=== PATIENT | male | born 1960 | race Caucasian/White ===

== ENCOUNTER 2016-12-15 13:56 | Emergency (ER) | payer OTHER, BC ==
[~2016-12-15] VITALS: Ht 170.2 cm; Wt 92.4 kg
[~2016-12-15 13:56] MED LIST: ANTIHISTAMINE PO; HYDROCODON-ACETAMINOPHEN PO; LANS30CA12 PO; NAPR-1169 PO; OMEG1CAP81 PO; SIMV20TA5 PO
[2016-12-15 14:16] VITALS: TEMP 36.9; Ht 170.2 cm; Wt 92.4 kg
[2016-12-15 14:22] VITALS: O2SAT 94
--- NOTE | 2016-12-15 14:25 | EMERGENCY ROOM VISIT NOTE ---
History Report prepared by Vicenteibrachel: Saima Haider Under the Supervision of: Dr. Uvaldo Abdalla M.D. First contact with patient: 14:03 Chief Complaint: FALL Stated Complaint: SYNCOPE/ POSSIBLY HIT HEAD/ HAND NUMBNESS History of Present Illness The patient is a 56 year old male who presents to the Emergency Room via EMS to be evaluated for a possible syncopal event that occurred this afternoon. 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 The patient admits that he hit the top of his head on the bleachers and bit his lip when he stood up. They yelled to see if he was alright, and he replied that he was fine. About 25 minutes later, the patient was found under the bleachers unconscious with drool on the ground next to his face. He was able to wake up easily with stimulation and was alert and oriented afterwards. Upon EMS arrival , the patient initially refused to come to the emergency room, but an ED physician taking medical command talked him into coming. EMS notes that while he was on the phone with the physician, he was slightly off balance. He was hypertensive around 170s/110s en route. Currently, he has a slight headache towards the back of his head. He has no other complaints. The patient is not a heavy drinker but admits to having some cocktails last night and a beer today at lunch. He has a history of complex migraines. He does not have any history of seizures. Denies abdominal pain or other complaints. Source of History: patient, EMS Onset: this afternoon Position: other (global) Quality: other (possible syncopal event) Timing: resolved Associated Symptoms: + headache, No abdominal pain Review of Systems See HPI for pertinent positives & negatives. A total of 10 systems reviewed and were otherwise negative. Past Medical & Surgical Medical Problems: (1) Acid reflux (2) High cholesterol (3) Migraine Surgical Problems: (1) H/O inguinal hernia repair Family History Patient reports no known family medical history. Social History Smoking Status: Never Smoker Alcohol Use: occasionally Marital Status: Housing Status: lives with family Occupation Status: employed Current/Historical Medications Scheduled Albuterol Hfa (Ventolin Hfa), 2-4 PUFFS INH Q6H Ascorbic Acid (Ascorbic Acid), 1,000 MG PO DAILY Ibuprofen (Motrin), 400-600 MG PO Q6HR PRN Lansoprazole (Prevacid), 60 PO HS Omeprazole (Prilosec), 20 MG PO BID Simvastatin (Zocor), 20 MG PO QPM Miscellaneous Medications Plcqsjcfcm-Bnfarmlkefmoo-Vgxra (Butalbital/APAP/Caffeine 50-300-40 mg) Zinc W/ Vitamin C & B6 (Zinc) Allergies Coded Allergies: Egg (Verified Allergy, Unknown, 12/15/16) Clavulanic Acid (Verified Adverse Reaction, Unknown, GI UPSET, 12/15/16) Physical Exam Vital Signs Date Time Temp Pulse Resp B/P Pulse Ox O2 Delivery O2 Flow Rate FiO2 12/15/16 15:25 84 17 140/92 93 Room Air 12/15/16 15:02 84 16 132/99 95 Room Air 12/15/16 14:22 94 Room Air 12/15/16 14:16 36.9 86 18 157/96 94 Room Air Physical Exam GENERAL: Patient is a healthy-appearing well-nourished 56 year old male HEAD: Normocephalic, 2 inch contusion to the left forehead. EYES: He cannot completely lateralize the left eye, pupils equal and react to light OROPHARYNX mucous membranes are moist no exudates present no erythema or edema present NECK: Supple no nuchal rigidity CHEST: Good equal expansion LUNGS: Clear and equal to auscultation CARDIAC: Normal S1 and S2 ABDOMEN: Soft nontender no guarding BACK: No CVA tenderness EXTREMITIES: No pain upon palpation normal muscle strength in all groups no clubbing cyanosis or edema NEURO: Patient is following commands is answering questions appropriately. Alert and oriented x3 Cranial Nerves 2-12 grossly intact Medical Decision & Procedures ER Provider Diagnostic Interpretation: Radiology results as stated below per my review and radiologist interpretation: CT OF THE HEAD WITHOUT CONTRAST CLINICAL HISTORY: Fall. Syncope. COMPARISON STUDY: Head CT August 12, 2008 and MRI of the brain August 13, 2008. CT DOSE: 823.94 mGycm TECHNIQUE: Helical axial images of the head were obtained without IV contrast. Automated exposure control was utilized for the study. FINDINGS: No acute intracranial hemorrhage, midline shift or mass effect is present. Ventricular system is normal. The basilar cisterns are patent. There are no extra-axial collections. Burgess-white differentiation is maintained. There are no findings to suggest acute dural sinus thrombosis or acute territorial infarct. There is no calvarial fracture. IMPRESSION: 1. No acute intracranial findings. 2. No calvarial fracture. Electronically signed by: William Palacios M.D. 12/15/2016 2:58 PM Dictated Date/Time: 12/15/2016 2:56 PM ECG Indication: syncope Rate (beats per minute): 77 Rhythm: normal sinus Findings: no acute ischemic change, no ectopy ED Course 1405: The patient was evaluated in room B4. A complete history and physical examination was performed. He refused any labs. 1526: Upon reexamination the patient is resting comfortably. I discussed results and treatment plan with the patient. He verbalizes agreement and understanding. The patient is ready for discharge. Medical Decision Differential diagnosis: Etiologies such as infection, hypoglycemia, electrolyte abnormalities, cardiac sources, intracerebral event, trauma, toxicologic, neurologic, as well as others were entertained. This is a 56-year-old male who presents emergency department complaining of syncopal episode. The patient hit his head and it was found to be laying on the floor approximate 20 minutes later. Upon arrival to the emergency department the patient is refusing all laboratory work. The patient also initially refused EMS however was talked into coming by the physician. Upon arrival the patient is refusing all interventions. He did agree to have a CAT scan of the head as well as an EKG performed. These were both read as normal. I strongly encouraged the patient follow-up with neurology. Patient was in agreement with the treatment plan. The patient has demonstrated no significant defect in the decision-making capacity to make choices. The encounter had a good level of communication with language the patient can easily understand. I feel trust was present and conveyed that our action/intentions were the best interest of the patient. The patient was given all relevant information and reiterated the explained risks and benefits. The patient explained the reasoning for refusing treatment clearly. The patient possesses and expresses a set of values and goals, the ability to communicate and understand, and an ability to reason and deliberate. Despite acting emphatically, attentively and with the utmost patient's the patient declined further treatment. I offered options, negotiated, and explored every reasonable choice. I must respect the patient's autonomy and that they feel that their choices are best for them despite the associated risks of leaving without completing the evaluation. The patient was informed about the findings as listed above. All questions were answered and he was pleased with the treatment. Return instructions were outlined and the patient was discharged in stable condition. Impression Primary Impression: Syncope Scribe Attestation The scribe's documentation has been prepared under my direction and personally reviewed by me in its entirety. I confirm that the note above accurately reflects all work, treatment, procedures, and medical decision making performed by me. Departure Information Dispostion Home / Self-Care Referrals Pavan Waters Jr,D.O. (PCP) Patient Instructions ED Fainting Unkn Cause, My [facility], Syncope Causes, Syncope Dx, Syncope Tx Prevent Additional Instructions Follow up with DR Mendoza's office You have been examined and treated today on an emergency basis only. This is not a substitute for, or an effort to provide, complete comprehensive medical care. It is impossible to recognize and treat all injuries or illnesses in a single emergency department visit. It is therefore important that you follow up closely with Dr Waters. Call as soon as possible for an appointment. Thank you for your time and consideration. I look forward to speaking with you again soon. Please don't hesitate to call us if you have any questions. Problem Qualifiers Primary Impression: Syncope Syncope type: unspecified Qualified Codes: R55 - Syncope and collapse
[2016-12-15] MEDS ORDERED: [UNRECOGNIZED DRUG - CODE] (14:41)
[2016-12-15] MEDS ORDERED: BUTA1CAP20 (14:41)
--- NOTE | 2016-12-15 14:59 | DIAGNOSTIC IMAGING REPORT ---
CT OF THE HEAD WITHOUT CONTRAST CLINICAL HISTORY: Fall. Syncope. COMPARISON STUDY: Head CT August 12, 2008 and MRI of the brain August 13, 2008. CT DOSE: 823.94 mGycm TECHNIQUE: Helical axial images of the head were obtained without IV contrast. Automated exposure control was utilized for the study. FINDINGS: No acute intracranial hemorrhage, midline shift or mass effect is present. Ventricular system is normal. The basilar cisterns are patent. There are no extra-axial collections. Burgess-white differentiation is maintained. There are no findings to suggest acute dural sinus thrombosis or acute territorial infarct. There is no calvarial fracture. IMPRESSION: 1. No acute intracranial findings. 2. No calvarial fracture. Electronically signed by: William Palacios M.D. 12/15/2016 2:58 PM Dictated Date/Time: 12/15/2016 2:56 PM
[2016-12-15 15:25] VITALS: BP 140/92; PULSE 84; O2SAT 93
[2016-12-19] MEDS ORDERED: ASCO500T16 PO (14:03)
[2016-12-19] MEDS ORDERED: VNTHFA/IN INH (14:41)
[2016-12-19] MEDS ORDERED: IBUP-1459 PO (16:11)
[2016-12-19] MEDS ORDERED: PRLSR20 PO (16:11)
== END 2016-12-15 15:46 | disposition home or self-care (01) ==
LOC: EDBD 13:56 → C.EDB 13:56
DX: R55 Syncope and collapse (principal); S00.83XA Contusion of other part of head, initial encounter; K21.9 Gastro-esophageal reflux disease without esophagitis; E78.00 Pure hypercholesterolemia, unspecified; W22.8XXA Striking against or struck by other objects, initial encounter; Y92.29 Other specified public building as the place of occurrence of the external cause; Y99.0 Civilian activity done for income or pay

== ENCOUNTER 2016-12-19 19:56 | Emergency (ER) | payer OTHER, BC ==
[~2016-12-19] VITALS: Ht 170.2 cm; Wt 92.0 kg
[~2016-12-19 19:56] MED LIST changes: -ANTIHISTAMINE PO; +ASCO500T16 PO; +BUTA1CAP20; -HYDROCODON-ACETAMINOPHEN PO; +IBUP-1459 PO; -NAPR-1169 PO; -OMEG1CAP81 PO; +PRLSR20 PO; +VNTHFA/IN INH; +[UNRECOGNIZED DRUG - CODE]
[2016-12-19 20:02] VITALS: TEMP 36.9; Ht 170.2 cm; Wt 92.0 kg
[2016-12-19] MEDS ORDERED: BUTA1CAP PO (20:39)
[2016-12-19] MEDS ORDERED: CYCL0.052 OPB (20:39)
[2016-12-19] MEDS ORDERED: ZINC1TAB PO (20:39)
[2016-12-19] MEDS ORDERED: FEXO1TAB49 PO (20:43)
--- NOTE | 2016-12-19 21:05 | DIAGNOSTIC IMAGING REPORT ---
CT SCAN OF THE BRAIN WITHOUT IV CONTRAST CLINICAL HISTORY: Head injury several days ago. Headache. COMPARISON STUDY: CT of the brain dated 12/15/16. TECHNIQUE: Unenhanced axial CT scan of the brain is performed from the vertex to the skull base. Automated dose control exposure was utilized. CT DOSE: 537.48 mGy.cm FINDINGS: Brain parenchyma: The brain parenchyma is normal in appearance. There is no hemorrhage, mass effect, or evidence of acute territorial ischemia by CT criteria. Burgess-white matter is preserved. No extra-axial fluid collection is seen. Ventricles, sulci, cisterns: Normal in configuration. Intracranial vasculature: There is minimal atherosclerotic calcification of the cavernous carotid and vertebral arteries. Calvarium: Unremarkable. Sinuses and mastoids: The visualized paranasal sinuses are clear. The mastoid air cells are well pneumatized. Orbits: The bony orbits are grossly intact. IMPRESSION: No acute intracranial abnormality. Electronically signed by: Sarath Guzman M.D. 12/19/2016 9:03 PM Dictated Date/Time: 12/19/2016 9:01 PM
[2016-12-19 21:42] VITALS: BP 143/100; PULSE 73; O2SAT 94
--- NOTE | 2016-12-20 01:02 | EMERGENCY ROOM VISIT NOTE ---
ED Visit Note First contact with patient: 20:07 Chief Complaint: Possible head injury. History of Present Illness: Mr. Resendiz is a 56-year-old white male who ambulates into the ED accompanied by his complaining of a possible head injury. Historically patient was seen in this ED on December 15 after what appeared to be a syncopal episode. 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 During that visit a CT was performed and no intracranial abnormalities or skull fractures were noted. Patient did report he returned to work today after this evaluation. Patient was seen earlier today at a local urgent care center and was referred to the ED for evaluation of head injury. Patient and reports patient has been having increasing irritability, excessive sleeping, difficulty remembering normal objects he uses at work, repeating himself or asking the same questions multiple times and has been feeling confused. All of this is associated with a headache. He places his discomfort over the left parietal area. He describes this as an achy sensation. He rates his discomfort 3/10. The pain is nonradiating. He has not identified any aggravating or alleviating factors related to the pain. He has using his prescribed Esgic without relief of his discomfort. Associated with his pain he also has lightheadedness and light sensitivity. He denies dizziness, visual changes, hearing changes, difficulty swallowing, difficulty ambulating/coordinating body movements, neck pain, back pain, chest pain, shortness of breath, abdominal pain, extremity weakness/numbness/tingling. Review of Systems: As noted above in history of present illness. All body systems were reviewed and found to be negative as noted above. Past Medical History: Migraine headaches, dyslipidemia, acid reflux, status post inguinal hernia repair. Current Medications: Prilosec, ibuprofen, vitamin C, albuterol, zinc, Esgic, Restasis and Julia. Allergies to Medications: Clavulanic acid. Social History: Patient is currently employed; he feels safe in his home environment; he denies tobacco use and admits to alcohol use. Physical Examination: Vital Signs: Date Time Temp Pulse Resp B/P Pulse Ox O2 Delivery O2 Flow Rate FiO2 12/19/16 21:42 73 18 143/100 94 12/19/16 20:02 36.9 76 18 142/96 96 Room Air GENERAL: 56-year-old male in mild distress due to symptoms, nontoxic-appearing, afebrile and hemodynamically stable. NEUROLOGICAL: Awake, alert and oriented to person, place and time. Answering questions appropriately and following commands. Normal gait. Good hand eye coordination. No focal motor or sensory deficits. Romberg test was unstable but negative. Pronator drift test negative. Cranial nerves II through XII grossly intact. Normal rapid all movements of the hands and fingers. Was able to spell backwards but not count backwards. Difficulty drawing the face of a clock. Normal heel maki test. Intermittently patient stares down towards his lap and is not immediately responsive to my questions for approximately 2-3 seconds. SKIN: Warm, dry and pink. No soft tissue eruptions or trauma noted. HEENT: Atraumatic and normocephalic. Skull: No bony deformities, depressions, swelling or ecchymosis. No raccoon's eyes or ovalle signs. No drainage in the ears or the nostril; no hemotympanum. Face: No bony tenderness, swelling or ecchymosis. PERRLA. EOMI without nystagmus. Funduscopic examination is unremarkable with no signs of increased intracranial pressure. Sclera white and conjunctiva pink. No malocclusion. No intraoral trauma. Airway patent. Speech is normal and clear. Trachea midline. No jugular venous distention. BACK: No tenderness over the bony spine. Full range of motion of the cervical spine. THORAX: Lungs sounds are clear to auscultation and equal bilaterally with symmetrical chest wall. ABDOMEN: Flat, soft and nontender. Positive bowel sounds in all quadrants. No guarding, rigidity or organomegaly. EXTREMITIES: Moves all extremities well on command and with purpose. All distal neurovascular statuses are intact and equal bilaterally. 4/5 muscle strength in flexion, extension, abduction and abduction of the shoulders and hips, flexion and extension of the elbows and knees, pronation and supination of the forearm, flexion, extension, radial and ulnar deviation of the wrist, plantar flexion and dorsiflexion of the ankles and flexion and extension of the great toes. ED Course: Patient is assessed as noted above. Head CT: Was reviewed by myself and read by the radiologist showing no acute intracranial abnormalities or skull fractures. Patient was offered pain medications and refused. Patient and were educated about tonight's findings and instructed on his treatment plan; he verbalizes understanding and agreement with this plan. Clinical Impression: Concussion. Decision-Making: Initially my differential diagnosis I considered concussion, intercranial bleed, skull fracture and other causes. Disposition: Patient discharged home in stable condition accompanied by his ; prior to departure he was reassessed and subjectively reported he was pain- free. Plan: Patient was encouraged to use ibuprofen or acetaminophen as needed for pain. Patient was encouraged to rest and no significant strenuous activities until followed up with concussion clinic including work. Patient was encouraged to avoid alcohol use until followed up with concussion clinic. Patient was encouraged to follow-up with the [facility]. Patient and are educated about signs of worsening head injury and wake-up precautions. Patient are educated return to the ED for any signs of worsening head injury or any new/concerning symptoms.
== END 2016-12-19 21:43 | disposition home or self-care (01) ==
LOC: C.EDB 19:58
DX: S06.0X0A Concussion without loss of consciousness, initial encounter (principal); W19.XXXA Unspecified fall, initial encounter; Y92.89 Other specified places as the place of occurrence of the external cause; Y99.0 Civilian activity done for income or pay; E78.5 Hyperlipidemia, unspecified; K21.9 Gastro-esophageal reflux disease without esophagitis; Z79.899 Other long term (current) drug therapy

== ENCOUNTER → 2017-03-25 | Outpatient (CLI) | payer OTHER, BC ==
[~2017-03-25] MED LIST changes: +BUTA1CAP PO; -BUTA1CAP20; +CYCL0.052 OPB; +FEXO1TAB49 PO; +GADAVIST IV PRN; -LANS30CA12 PO; -SIMV20TA5 PO; +ZINC1TAB PO; -[UNRECOGNIZED DRUG - CODE]
--- NOTE | 2017-03-25 11:01 | DIAGNOSTIC IMAGING REPORT ---
Brain MRI WITH AND WITHOUT CONTRAST HISTORY: Head trauma. Headache. PERSISTENT NEUROLOGIC COMPLAINTS, POST INJURY TECHNIQUE: Multiplanar multisequence MRI of the brain was performed both before and after the intravenous administration of contrast. COMPARISON STUDY: Head CT 12/19/2016. Brain MRI 08/13/2008. FINDINGS: There are no areas of restricted diffusion to suggest acute infarction. The midline structures are intact. The paranasal sinuses are clear. The mastoid air cells are clear. The ventricles and sulci are within normal limits for age. There is no mass, hematoma, midline shift. The major vascular flow-voids at the skull base are well maintained. Postcontrast sequences show no areas of abnormal enhancement. There are few punctate foci of T2 hyperintensity seen within the periventricular white matter of the frontal lobes. This remains unchanged. This is of doubtful clinical significance. IMPRESSION: No significant change compared to the prior study. No acute intracranial abnormality. Electronically signed by: Farhan Ozuna M.D. 03/25/2017 11:00 AM Dictated Date/Time: 03/25/2017 10:50 AM
== END | disposition home or self-care (01) ==
LOC: C.MRIBC 09:55
DX: F07.81 Postconcussional syndrome (principal)

== ENCOUNTER → 2017-05-20 | Outpatient (CLI) | payer BC ==
[~2017-05-20] MED LIST changes: -GADAVIST IV PRN
--- NOTE | 2017-05-20 12:45 | DIAGNOSTIC IMAGING REPORT ---
RIGHT FOOT MIN 3 VIEWS ROUTINE CLINICAL HISTORY: 56 years-old Male presenting with FALL, R FOOT PAIN. TECHNIQUE: Frontal, oblique, and lateral views of the right foot were obtained. COMPARISON: None. FINDINGS: No acute fracture, malalignment, or radiopaque foreign body. No significant degenerative change. Soft tissues grossly normal. IMPRESSION: 1. No acute osseous injury of the right foot. Electronically signed by: Richard Appiah M.D. 05/20/2017 12:44 PM Dictated Date/Time: 05/20/2017 12:43 PM
== END | disposition home or self-care (01) ==
LOC: C.RAD 12:21
DX: T14.90 Injury, unspecified (principal); M79.671 Pain in right foot; W19.XXXA Unspecified fall, initial encounter

== ENCOUNTER → 2018-01-25 | Outpatient (CLI) | payer OTHER ==
--- NOTE | 2018-01-26 06:33 | PAP/PSG TECHNICIAN REPORT ---
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 Sex: Male Age: 57 StudyType: PSG Weight: 195 lbs Height: 57 years, Height 5' 7" Neck Circum:17 inches BMI: 30.54 Medications: Cetrizine 10 mg, Prilosec 20 mg, Fiorcet, Gabapentin 100 mg, Amitripiline 100 mg, Atrovasatin 20 mg, Aspirin 81 mg. Patient History 57 yr. old male in room 7 presents to the sleep lab one year post a severe concussion. Since that time he thinks that he has gained some weight and has had a harder time staying asleep, he states that he wakes gasping and is a heavy snorer, he also states that he trashes all night long and has a lot of anxiety = 10, Neck = 17 inches Parameters Monitored NPSG: E1-M2, E2-M1, Fp1-M2, Fp2-M1, F3-M2, F4-M2, F4-M1, C3-M2, C4-M2, C4-M1, O1-M2, O2-M2, O2-M1, T3-M2, T4-M1, P3-M2, P4-M1, CHIN1, CHIN2, HR, EKG, Legs, PFLOW, SNOR, FLOW, CFLOW, Tidal Volume, THOR, ABDO, SpO2, PLTH, CPRESS, ETCO2 Wave, ETCO2, pH Sleep Architecture Sleep Stages Time at Lights Off 11:06:54 PM STAGES Time (min.) TST (%) Time at Lights On 5:29:54 AM Wake 8.5 -- Total Recording Time (TRT) 383.00 min. N1 6.5 2 Total Sleep Period (TSP) 379.0 min. N2 216.5 58 Total Sleep Time (TST) 374.0min. N3 0.0 0 Awake Time 8.5 min. REM 151.0 40 Wake after Sleep Onset 5.0 min. Sleep Efficiency (SE) 98 % Sleep Onset Latency (ZOEY) 4.0 min. Number of Stage 1 Shifts None Awakenings 4 Stage Changes 19 Number of REM periods 6 REM 151.0 40 REM Latency 81.5 min. NREM 223.0 60 Body Position Analysis Supine Right Left Side Prone Vertical Total Sleep Time (min.) 287.7 0.0 93.3 93.27 0.0 0.0 Total Sleep Time (%) 75% 0% 25% 25 0% N/A% Total Sleep Time REM (min.) 111.2 0.0 39.8 None 0.0 0.0 Total Sleep Time NREM (min.) 169.5 0.0 53.5 None 0.0 0.0 Intermittent Wake (min.) 7.0 0.0 1.5 None 0.0 0.0 Total Sleep Period (%) 75% None None None None None Arousals Myoclonus (PLM) * Events Count Index Events Count Index Spontaneous 6 1 Events Awake (PLMW) 0 0.0 Respiratory 2 0.3 Events Asleep w/ Arousal (PLMA) 1 0.2 PLM 1 0 Events Asleep w/o Arousal (PLMS) 283 45.4 Snoring 7 1 Total Asleep 284 45.6 Total 16 3 Total 284 45 Respiratory Analysis * CA OA MA CH H RERA Total Count 0 3 0 0 41 0 44 Index 0.0 0.5 0.0 0 6.6 0 7.1 Mean Duration 0.0 20.0 0.0 0.00 20.3 0.0 20.3 Longest Duration 0.0 24.6 0.0 0.00 0.0 0.0 57.8 Respiratory Event Summary Total Supine ~Supine Right Left Prone REM NREM Apneas Count 3 2 1 N/A 1 N/A 1 2 Index 0.5 0 1 N/A 0.6 N/A 0 1 Hypopneas (4% Desat) Count 41 32 9 N/A 9 N/A 30 11 Index 6.6 6.8 6 N/A 5.8 N/A 11.9 3.0 Apneas & All Hypopneas Count 44 34 10 N/A 10 N/A 31 13 Index 7.1 7 6 N/A 6 N/A 12.3 3.5 Respiratory Events (General Internal Medicine Physician+All Hyp+RERA) Count 44 34 10 N/A 10 N/A 31 13 Index 7.1 7 6 N/A 6.4 N/A 12.3 3.5 Respiratory Related Arousal Count 2 34 0 N/A 0 N/A 2 0 Index 0.3 0 0 N/A 0 N/A 1 0 Snoring Analysis Supine Right Left Prone REM NREM Total Snore duration 64.8 min Snores count 2,264 N/A 268 N/A 1,255 1,277 2,532 Snore mean duration 1.5 Sec Snores index 484 N/A 172 N/A 498.7 343.6 406.2 TST with snoring (%) 17.3% Desaturation Event Summary: Minimum %SpO2 Event Count Mean/Min/Max Duration(sec.) Desaturation Index % Time In Bed > 90 35 29.5 / 8.5 / 57.3 12.6 45.2 86 - 90 28 25.1 / 7.3 / 52.3 8.8 52.0 81 - 85 5 10.2 / 8.5 / 13.8 33.0 2.5 76 - 80 1 13.8 / 13.8 / 13.8 50.3 0.3 71 - 75 0 N/A 0.0 0.0 66 - 70 0 N/A 0.0 0.0 61 - 65 0 N/A 0.0 0.0 56 - 60 0 N/A 0.0 0.0 51 - 55 0 N/A 0.0 0.0 < 50 0 N/A 0.0 0.0 Total REM NREM Awake <50% 0.0 min. 0.0 min. 0.0 min. 0.0 min. 51 - 60% 0.0 min. 0.0 min. 0.0 min. 0.0 min. 61 - 70% 0.0 min. 0.0 min. 0.0 min. 0.0 min. 71 - 80% 1.2 min. 1.0 min. 0.2 min. 0.0 min. 81 - 90% 200.4 min. 74.9 min. 122.9 min. 2.6 min. 91 - 100% 166.3 min. 70.8 min. 89.8 min. 5.7 min. Average 90 90 90 92 Minimum SpO2 77 77 80 87 Desaturation Event Index 8.0 13.9 4.3 0.0 # Desat. 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 PSG Study Mr. Rodríguez slept in the left, and supine positions. No cardiac arrhythmia or PLM's noted. No bruxism noted. Snoring was noted and scored as a 4 on a scale of 1 through 5. (0=no snoring, 5=snoring loud enough to be heard through a closed door or down the omer way) awoke to use the restroom one time during the night. Mr. Rodríguez stated, I did not sleep as well as I do when I am in my own bed. The final report will be interpreted and signed by a sleep physician. The completed physician report will then be placed in the patient medical record The patient had taken 10 mg of Ambien along with the 100 mg of Amitriptyline prior to sleep. Mr. Rodríguez arrived with a lot of anxiety was fearful of the sleep study, I talked to him for quite some time until he felt a little bit better about what the test was going to be like. He seemed to be much more at ease by the time the test was to start. He did decline a split study if needed. Therapy (cm H2O) 0 TIB (min.) 382.5 TST (min.) 374.0 Sleep Onset (min.) 4.0 REM Onset From Sleep (min.) 81.5 Sleep Efficiency % 98 Wakefulness (%) 2 Wakefulness (min.) 8.5 NREM 1 (%) 2 NREM 1 (min.) 6.5 NREM 2 (%) 58 NREM 2 (min.) 216.5 NREM 3 (%) 0 NREM 3 (min.) 0.0 REM (%) 40 REM (min.) 151.0 # Arousals 16 Arousal Index 3 # Snore 2,532 Snore Index 406.2 AHI 7.1 AHI Supine 7 AHI Non-Supine 6 NREM AHI 3.5 REM AHI 12.3 RDI 7.1 # Obstructive Apnea 3 # Central Apnea 0 # Mixed Apnea 0 # Hypopneas 41 RERAs 0 Total Respiratory Events 49 Time Below SpO2 89% (min.) 65.1 Mean NREM SpO2 (%) 90 Mean REM SpO2 (%) 90 Mean Sleep SpO2 (%) 90 Min NREM SpO2 (%) 80 Min REM SpO2 (%) 77 Position Supine (min.) 287.7 Position Non-supine (min.) 93.3 LM Index Sleep 45.6 LM Index NREM 66.7 LM Index REM 14.3 Mean Heart Rate (bpm) 79 Min Heart Rate (bpm) 68
--- NOTE | 2018-01-30 12:11 | POLYSOMNOGRAPH REPORT ---
CLINICAL DATA: The patient is a 57-year-old male with a history of snoring and nocturnal gasping. Relatively recently, he had a colonoscopy and had some breathing difficulty. He completed the Titus sleepiness scale and had a score of 10. His BMI is 30.54. The patient is referred by Dr. Pavan Waters for a diagnostic in-lab polysomnography. SLEEP ARCHITECTURE: The total sleep period was 379 minutes. The total sleep time was 374 minutes. Sleep efficiency was high at 98%. The sleep latency was normal at 4 minutes. Wake after sleep onset was only 5 minutes. The REM latency was 81.5 minutes. There were 2 REM periods during the night. Sleep consisted of stage N1 of 2%, stage N2 of 58%, stage N3 of 0%, and stage REM 40%. AROUSAL DATA: The patient had a total of 16 arousals including 6 spontaneous arousals, 2 respiratory arousals, 1 PLM arousal, and 7 snoring arousals. The arousal index is 3. PLM DATA: The patient had a total of 284 periodic limb movements of sleep for a PLM index of 45.6. There was only 1 arousal associated with limb movements for a PLM arousal index of 0.2. EKG: The cardiac rhythm was normal sinus. The minimal heart rate was 68 beats per minute. The average heart rate was 79 beats per minute. No arrhythmias were noted. RESPIRATORY DATA: The patient had a total of 44 respiratory events including 3 obstructive apneas and 41 hypopneas. Hypopneas were scored according to the 4% desaturation rule. The longest apnea was 24.6 seconds. The mean duration of the hypopneas was 20.3 seconds. The apnea hypopnea index is mildly elevated at 7.1 events per hour. This reflects a mild obstructive sleep apnea. OXIMETRY DATA: The average saturation for the night was 90%. The minimum saturation was 77%. There was a total of 65.3 minutes with saturations less than 89%. Most of the desaturations occurred during REM sleep and at times of respiratory events. 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 No cardiac arrhythmia noted. No bruxism noted. Snoring was noted and scored as a 4 on a scale of 1 through 5. The patient had taken 10 mg of Ambien along with 100 mg of amitriptyline prior to sleep. The patient arrived with a lot of anxiety and was fearful of the sleep study. I talked to him for quite some time until he felt a little bit better about what the test was going to be like. He seemed to be much more at ease by the time the test was started. He did decline a split study if needed. IMPRESSIONS: 1. Mild obstructive sleep apnea. 2. Periodic limb movement disorder. COMMENTS: The patient had a very high sleep efficiency. He did not have stage N3 sleep, but had an increased amount of REM sleep. His sleep was well consolidated. There were at times frequent limb movements, but with few arousals. Clinical correlation is advised. He does have mild sleep apnea, which is associated with some hypoxia. The patient reportedly is very claustrophobic and fearful of nasal CPAP. RECOMMENDATIONS: The options for treatment for this mild sleep apnea could include nasal CPAP therapy, oral appliances, or an ENT evaluation. It would be suggested that if possible, he avoid sleeping in the supine position as there is typically increased snoring and respiratory events while supine. Weight loss is advised in light of the elevation of body mass index of 30.54.
== END | disposition home or self-care (01) ==
LOC: C.NEUR 20:00
DX: G47.10 Hypersomnia, unspecified (principal); R06.83 Snoring

== ENCOUNTER → 2018-02-23 | Outpatient (CLI) | payer OTHER ==
--- NOTE | 2018-02-23 13:45 | DIAGNOSTIC IMAGING REPORT ---
RIGHT INGUINAL ULTRASONOGRAPHY CLINICAL HISTORY: Right groin pain. History of right inguinal hernia repair. COMPARISON STUDY: No previous studies for comparison. FINDINGS: There is a reducible small fat-containing right inguinal hernia. IMPRESSION: Small reducible fat-containing right inguinal hernia. Electronically signed by: Donald Celis M.D. 02/23/2018 1:44 PM Dictated Date/Time: 02/23/2018 1:43 PM
== END | disposition home or self-care (01) ==
LOC: C.ULTR 13:15
PROVIDERS: ATTEND Surgery
DX: R10.30 Lower abdominal pain, unspecified (principal); K40.90 Unilateral inguinal hernia, without obstruction or gangrene, not specified as recurrent

== ENCOUNTER 2024-01-21 08:33 | Observation (INO) ==
--- NOTE | 2023-12-30 09:37 | PAT Medication Instructions ---
Medication Instructions Date of Service December 30, 2023 Home Medications Medication Instructions Recorded gabapentin 100 mg capsule 100 mg PO Q6H PRN Insomnia #90 caps 12/18/22 rosuvastatin 20 mg tablet (Crestor) 20 mg PO HS #90 tabs 06/22/23 fluticasone propionate 50 1 - 2 spray intranasal QAM Allergy 09/13/23 mcg/actuation nasal Symptoms #16 grams spray,suspension (Flonase Allergy Relief) alprazolam 0.5 mg tablet 0.5 mg PO DAILY PRN Anxiety, sleep 09/22/23 #30 tabs rvomeaggua-xofrksifkzctg-dvwezqdk 1 tab PO UD PRN Migraine Headache 09/22/23 50 mg-325 mg-40 mg tablet (Esgic) #30 tabs divalproex 250 mg tablet,extended 250 mg PO HS #90 tabs 12/03/23 release 24 hr (Depakote ER) gabapentin 100 mg capsule 100 mg PO Q6H PRN Insomnia diphenhydramine HCl 25 mg tablet (Allergy Relief (diphenhydramine)) 25 mg PO TID PRN Allergy Symptoms rosuvastatin 20 mg tablet (Crestor) 20 mg PO HS albuterol 90 mcg/actuation aerosol inhaler 90 mcg inhalation UD PRN sob fluticasone propionate 50 mcg/actuation nasal spray,suspension (Flonase Allergy Relief) 1 - 2 spray intranasal QAM Allergy Symptoms alprazolam 0.5 mg tablet 0.5 mg PO DAILY PRN Anxiety, sleep rewqywexoh-bqslqipyvedkh-kopgomkj 50 mg-325 mg-40 mg tablet (Esgic) 1 tab PO UD PRN Migraine Headache divalproex 500 mg tablet,delayed release (Depakote) 500 mg PO HS pantoprazole 40 mg tablet,delayed release (Protonix) 40 mg PO HS divalproex 250 mg tablet,extended release 24 hr (Depakote ER) 250 mg PO HS ASK your surgeon for instructions qptxfaqktg-iblkfsffkmmln-fbffpppr 50 mg-325 mg-40 mg tablet (Esgic) 1 tab PO UD PRN Migraine Headache DO NOT take the morning of surgery diphenhydramine HCl 25 mg tablet (Allergy Relief (diphenhydramine)) 25 mg PO TID PRN Allergy Symptoms Take morning of surgery With a small sip of water, OTHERWISE NOTHING TO EAT OR DRINK AFTER MIDNIGHT: gabapentin 100 mg capsule 100 mg PO Q6H PRN Insomnia (if needed) albuterol 90 mcg/actuation aerosol inhaler 90 mcg inhalation UD PRN sob (use if needed; please bring rescue inhaler with you to hospital day of surgery if possible) fluticasone propionate 50 mcg/actuation nasal spray,suspension (Flonase Allergy Relief) 1 - 2 spray intranasal QAM Allergy Symptoms (if needed) alprazolam 0.5 mg tablet 0.5 mg PO DAILY PRN Anxiety, sleep (if needed) Take evening before surgery gabapentin 100 mg capsule 100 mg PO Q6H PRN Insomnia (if needed) diphenhydramine HCl 25 mg tablet (Allergy Relief (diphenhydramine)) 25 mg PO TID PRN Allergy Symptoms (if needed) albuterol 90 mcg/actuation aerosol inhaler 90 mcg inhalation UD PRN sob (if needed) alprazolam 0.5 mg tablet 0.5 mg PO DAILY PRN Anxiety, sleep (if needed) divalproex 500 mg tablet,delayed release (Depakote) 500 mg PO HS pantoprazole 40 mg tablet,delayed release (Protonix) 40 mg PO HS divalproex 250 mg tablet,extended release 24 hr (Depakote ER) 250 mg PO HS Other Notes If you have any questions please call us at [phone] or [phone] or [phone] or [phone]
--- NOTE | 2024-01-03 08:45 | Anesthesiology Consultation ---
Date of Service January 03, 2024 Assessment & Plan (1) Encounter for pre-operative examination: Chart Review Chart Review: Acceptable Risk for Surgery and Patient seen in Pre Admission Testing Pt requests IV in forearm instead of hand Pt currently scheduled as 23 hours observation. If surgeon decides to change patient to Same Day Joint, patient would be acceptable risk for TKA, pending patient is motivated, has good support and surgeon's office completes Same Day Joint Program preop requirements. Per PAT appt on 01/03/24, no recent illness/disease exposures, illness related symptoms, or recent illness/disease positive tests. Will leave to surgeon's discretion if preop Covid testing needed Right Knee Arthroscopy, Partial Lateral Meniscectomy, Chondroplasty(Right) 11/11/23= Done under GA with Grade 2 view with MAC #4. ETT #7.5. Atraumatic x 1 attempt Teaching & Discussion Pre-Anesthesia Teaching/Discussion Notes: Instructed NPO after midnight before surgery,except medications with 15 cc of water. Medication instructions provided according to the PAT guidelines. History Surgery Operation Date: 01/21/24 11:05 Proposed Procedures p Right Total Knee Arthroplasty - [place] Farfan, Height/Weight Height: 5 ft 7 in Weight: 85.5 kg Allergies Allergy/AdvReac Type Severity Reaction Status Date / Time egg yolk Allergy Severe Anaphylaxis Verified 01/03/24 08:41 vaccine adjuvant system, AdvReac Severe Hives Verified 12/29/23 09:47 AS01B liposomal [From Shingrix (PF)] varicella-zoster virus AdvReac Severe Hives Verified 12/29/23 09:47 glycoprotein E, recombinant [From Shingrix (PF)] Sertraline AdvReac Intermediate Diarrhea Uncoded 12/29/23 09:47 Medications Home Medications Medication Instructions Recorded Confirmed Last Taken gabapentin 100 mg capsule 100 mg PO Q6H PRN Insomnia #90 caps 12/18/22 12/29/23 11/10/23 diphenhydramine HCl 25 mg tablet 25 mg PO TID PRN Allergy Symptoms 03/09/23 12/29/23 Unknown (Allergy Relief (diphenhydramine)) rosuvastatin 20 mg tablet (Crestor) 20 mg PO HS #90 tabs 06/22/23 12/29/23 11/10/23 albuterol 90 mcg/actuation aerosol 90 mcg inhalation UD PRN sob 09/13/23 12/29/23 11/06/23 inhaler fluticasone propionate 50 1 - 2 spray intranasal QAM Allergy 09/13/23 12/29/23 11/10/23 mcg/actuation nasal Symptoms #16 grams spray,suspension (Flonase Allergy Relief) alprazolam 0.5 mg tablet 0.5 mg PO DAILY PRN Anxiety, sleep 09/22/23 12/29/23 Unknown #30 tabs afxqqsgijf-hthsdsljztfuj-brtfrxqh 1 tab PO UD PRN Migraine Headache 09/22/23 12/29/23 Unknown 50 mg-325 mg-40 mg tablet (Esgic) #30 tabs divalproex 500 mg tablet,delayed 500 mg PO HS 11/02/23 12/29/23 11/10/23 release (Depakote) pantoprazole 40 mg tablet,delayed 40 mg PO HS 11/02/23 12/29/23 11/10/23 release (Protonix) divalproex 250 mg tablet,extended 250 mg PO HS #90 tabs 12/03/23 12/29/23 Unknown release 24 hr (Depakote ER) Past Medical History Medical History Anxiety Asthma well controlled and stable GERD (gastroesophageal reflux disease) well controlled and stable History of back problems Mostly to lumbar area- improved with chiropracter History of traumatic brain injury 2014 (dx'ed with concussion)- follows with [facility] neuro - symptoms resolved HLD (hyperlipidemia) Migraine Osteoarthritis Sleep apnea does not use CPAP currently>recalled- can not tolerate new device any longer Tremor Noted to hands - well controlled and stable Follows with [facility] neuro Exercise / Class Metabolic Activity II 4-5 Yardwork/Stairs/Walk up hill (one flight of stairs - no chest pain or SOB ) Past Family History Family History Mother Cancer Ovarian cancer Father Cancer Myocardial infarction Grandfather (Maternal) Stroke Other No family history of adverse response to anesthesia Denies family history of Prostate cancer Diabetes Breast cancer Lung cancer Colorectal cancer Past Surgical History Surgical History H/O eye surgery removal of metal by ablation treatment. H/O foot surgery benign tumor removed from between great toe and second toe H/O hernia repair (04/15/18) Recurrent Right Inguinal Hernia Open Repair With Mesh (plug and patch) excision of cord lipoma History of arthroscopy of right knee History of colonoscopy 2020 repeat 5 yrs, History of esophagogastroduodenoscopy (EGD) History of repair of rotator cuff RT S/P hemorrhoidectomy Status post laparoscopic hernia repair (04/16/14) Laparoscopic right inguinal hernia repair. Past Anesthesia History No Hx of Anesthesia Complications and No Family Hx of Anesthesia Complications History of PONV No Hx of PONV and No Hx of Motion Sickness Social History Smoking Status: Never smoker Do You Dip or Chew Tobacco: No Hx Alcohol Use: Yes Alcohol type: beer and wine alcohol intake frequency: a few times a week Hx Substance Use: No substance use type: does not use Review of Systems Patient denies chest pain, shortness of breath, dyspnea on exertion, cough, wheezing, palpitations. No hx of seizures, stroke, PA. No hx of blood clots or blood transfusions Physical Exam Vital Signs VITALS BP 137/79 P 70 TEMP 98.0 SP02 96% RESP 16 Constitutional no acute distress ENMT Mouth: no TMJ clicking Thyromental Distance: > or= 3.5 Finger Breadths (3.5) Mallampati Class: II Crowns to side teeth and molars Neck + limited neck extension (mild) Respiratory normal respiratory effort; no respiratory distress Auscultation: lungs clear to auscultation bilaterally; no wheezes Cardiovascular Rate/Rhythm: regular rate and regular rhythm Heart Sounds: no murmur Vessels: no carotid bruit Musculoskeletal Spine: no pain with cervical ROM Extremities: extremities normal to inspection Psychiatric Orientation: alert Lab Results Anesthesia Preop Results Results Anesthesia Widget: WBC 5.27 K/ul (4.8-10.8) 01/03/24 Hgb 15.5 g/dl (14.0-18.0) 01/03/24 Hct 46.9 % (42.0-52.0) 01/03/24 Plt 211 K/uL (130-400) 01/03/24 Na 141 mmol/L (136-145) 01/03/24 K 3.7 mmol/L (3.5-5.1) 01/03/24 Cl 106 mmol/L (98-107) 01/03/24 CO2 30 mmol/L (21-32) 01/03/24 BUN 11 mg/dl (6-23) 01/03/24 Creat 0.79 mg/dl (0.6-1.4) 01/03/24 Glucose Level 112 mg/dl (70-99(Fasting)) H 01/03/24 PT 10.5 Seconds (9.0-12.0) 01/03/24 PTT 27 Seconds (21-31) 01/03/24 INR 1.0 (0.9-1.1) 01/03/24 Blood Type A Positive 01/03/24 Antibody Screen NEGATIVE 01/03/24 Testing Electrocardiogram Date: 11/02/23 Findings: + NSR @ (88bpm) RBBB When compared to EKG from Sep 04, 2022- no significant change was found per cardio Chest X-Ray Date: 01/03/24 Findings: + NAD Other Testing Brain MRI 05/26/21= No intracranial abnormality is identified.
--- NOTE | 2024-01-18 07:43 | History & Physical Report ---
Date of Service January 18, 2024 Assessment & Plan (1) Osteoarthritis of right knee: We will proceed with a right total knee arthroplasty. Postoperatively he will be started on aspirin for DVT prophylaxis and kept overnight in the hospital for postop medical management. He plans to [facility] upon discharge. History of Present Illness Chief Complaint: Osteoarthritis of the right knee. Primary Care Provider: Rome AlbaradoDO Palacios is a pleasant 63-year-old male who has been doing with chronic increasing right knee pain. I did a right knee arthroscopy on him several months ago. It showed extensive osteoarthritis and a very large patellofemoral lesion. There were multiple loose bodies. Unfortunately he has not done well postoperatively. He continues to have pain. After failing extensive conservative treatment, he has elected to proceed with a right total knee arthroplasty.. Allergies Allergy/AdvReac Type Severity Reaction Status Date / Time egg yolk Allergy Severe Anaphylaxis Verified 01/03/24 08:41 vaccine adjuvant system, AdvReac Severe Hives Verified 12/29/23 09:47 AS01B liposomal [From Shingrix (PF)] varicella-zoster virus AdvReac Severe Hives Verified 12/29/23 09:47 glycoprotein E, recombinant [From Shingrix (PF)] Sertraline AdvReac Intermediate Diarrhea Uncoded 12/29/23 09:47 Home Medications Medication Instructions Recorded Confirmed Type gabapentin 100 mg capsule 100 mg PO Q6H PRN Insomnia #90 caps 12/18/22 12/29/23 Rx diphenhydramine HCl 25 mg tablet 25 mg PO TID PRN Allergy Symptoms 03/09/23 12/29/23 History (Allergy Relief (diphenhydramine)) rosuvastatin 20 mg tablet (Crestor) 20 mg PO HS #90 tabs 06/22/23 12/29/23 Rx albuterol 90 mcg/actuation aerosol 90 mcg inhalation UD PRN sob 09/13/23 12/29/23 History inhaler fluticasone propionate 50 1 - 2 spray intranasal QAM Allergy 09/13/23 12/29/23 Rx mcg/actuation nasal Symptoms #16 grams spray,suspension (Flonase Allergy Relief) alprazolam 0.5 mg tablet 0.5 mg PO DAILY PRN Anxiety, sleep 09/22/23 12/29/23 Rx #30 tabs [id number] 1 tab PO UD PRN Migraine Headache 09/22/23 12/29/23 Rx 50 mg-325 mg-40 mg tablet (Esgic) #30 tabs divalproex 500 mg tablet,delayed 500 mg PO HS 11/02/23 12/29/23 History release (Depakote) pantoprazole 40 mg tablet,delayed 40 mg PO HS 11/02/23 12/29/23 History release (Protonix) divalproex 250 mg tablet,extended 250 mg PO HS #90 tabs 12/03/23 12/29/23 Rx release 24 hr (Depakote ER) Past Med/Surg History Medical History Tremor Noted to hands - well controlled and stable Follows with [facility] neuro History of traumatic brain injury 2014 (dx'ed with concussion)- follows with [facility] neuro - symptoms resolved HLD (hyperlipidemia) Osteoarthritis Anxiety Sleep apnea does not use CPAP currently>recalled- can not tolerate new device any longer History of back problems Mostly to lumbar area- improved with chiropracter Asthma well controlled and stable GERD (gastroesophageal reflux disease) well controlled and stable Migraine Surgical History History of arthroscopy of right knee History of repair of rotator cuff RT History of esophagogastroduodenoscopy (EGD) History of colonoscopy 2020 repeat 5 yrs, S/P hemorrhoidectomy Status post laparoscopic hernia repair (04/16/14) Laparoscopic right inguinal hernia repair. H/O hernia repair (04/15/18) Recurrent Right Inguinal Hernia Open Repair With Mesh (plug and patch) excision of cord lipoma H/O eye surgery removal of metal by ablation treatment. H/O foot surgery benign tumor removed from between great toe and second toe Family History Mother Cancer Ovarian cancer Father Cancer Myocardial infarction Grandfather (Maternal) Stroke Other No family history of adverse response to anesthesia Denies family history of Prostate cancer Diabetes Breast cancer Lung cancer Colorectal cancer Social History Smoking Status: Never smoker Second Hand Exposure: No ( A SMALL CHILD); Do You Dip or Chew Tobacco: No; Hx Alcohol Use: Yes Alcohol type: beer and wine Alcohol Intake Frequency: 2-4 x/Month Hx Substance Use: No Preferred Language: Maori Communication Ability: Effective Visual Impairment: Limited Hearing Ability: Normal Respiratory Coordinator Required: No Beliefs That Will Affect Care: None marital status: Current Living Situation: Spouse current occupational status: retired How many Children do You have: 0 Feels Safe at Home: Yes Childhood Exposure to Second-Hand Smoke: No Diet: regular caffeine: Yes during the past year weight has: remained stable Dental Care, Regularly: Yes Physical Activity Frequency: Daily Physical Activity Frequency Comment: gym and walking Seatbelt Use: always Sunscreen Use: Yes Assistive Devices: Glasses Review of Systems All systems reviewed & are unremarkable except as noted in HPI & below. Physical Exam On physical examination the right knee, he has no effusion. He is range of motion 0 to 120 degrees no gross instability but he has diffuse pain. Most of his pain is in the patellofemoral joint.. Constitutional WD/WN, vitals as above Eyes PERRL, conjunctivae normal, anicteric sclerae ENMT external ear and nose normal, oropharynx normal Neck trachea midline, no thyromegaly Respiratory normal respiratory effort Cardiovascular RRR, no murmur, no edema Gastrointestinal (Abdomen) normal bowel sounds, soft, nontender, no hepatosplenomegaly Psychiatric A+Ox3, euthymic affect Results & Data Results & Data Laboratory Results . Diagnostic Findings X-rays of the right knee do show some joint space narrowing and osteophyte formation.. PG Care Time/CCT Total # of Minutes Spent Total Time Spent with Patient: Total time spent is greater than 50% in coordination of care (as documented) at patient's floor/unit and/or counseling patient: Coding Level of Care Code None Diagnoses Osteoarthritis of right knee M17.11
[~2024-01-21 08:33] MED LIST changes: -ASCO500T16 PO; -BUTA1CAP PO; -CYCL0.052 OPB; -FEXO1TAB49 PO; +GLYCOPYRROLATE 0.2 MG/ML VIAL ONE; -IBUP-1459 PO; +LIDOCAINE 2% 2 ML VIAL/AMP(20MG/ML) INFIL ONE; +MIDAZOLAM HCL 1 MG/ML 2ML VIAL ONE; +ONDANSETRON INJ 2 MG/ML 2 ML VIAL ONE; -PRLSR20 PO; +PROPOFOL IV EMULSION 10 MG/ML 20 ML VIAL IV ONE; +ROPIVACAINE 0.5% 5 MG/ML 30 ML VIAL ONE; -VNTHFA/IN INH; -ZINC1TAB PO
--- NOTE | 2024-01-21 09:14 | History & Physical Bridge Note ---
Date of Service January 21, 2024 History & Physical Bridge Note I have examined the patient, reviewed the History & Physical and in the interval since the performance of the History & Physical I have noted the following changes of clinical significance: no changes noted
[2024-01-21] MEDS: dexAMETHasone**PF** 10 MG/ML VIAL IV SCH (09:22)
[2024-01-21] MEDS: FAMOTIDINE 20 MG TAB PO SCH (09:23)
[2024-01-21] MEDS: LR 60ML/HR IV SCH (09:23)
[2024-01-21] MEDS: ACETAMINOPHEN 500 MG TAB PO SCH ×2 (09:23→14:04)
[2024-01-21] MEDS: LR 500ML BOLUS, THEN 15ML/HR IV SCH (09:23)
[2024-01-21] MEDS: GABAPENTIN 600 MG DOSE PO SCH (09:24)
[2024-01-21] MEDS ORDERED: ONDANSETRON INJ 2 MG/ML 2 ML VIAL IV PRN ×2 (09:41→12:45)
[2024-01-21] MEDS ORDERED: ePHEDrine sulfate 50 MG/ML AMP IV PRN (09:41)
[2024-01-21] MEDS ORDERED: ATROPINE SULFATE 0.1 MG/ML 10ML SYR IV PRN (09:41)
[2024-01-21] MEDS ORDERED: fentaNYL citrate PF 100 MCG/2 ML VIAL IV PRN (09:41)
[2024-01-21] MEDS ORDERED: HYDROmorphone INJ 1 MG/ML SYRINGE IV PRN (09:41)
[2024-01-21] MEDS: TRANEXAMIC ACID 1,000 MG **IV Pre-op IV SCH (09:53)
[2024-01-21] MEDS: ceFAZolin 2000MG 2,000 MG/15 ML SYR IV SCH (10:07)
[2024-01-21] MEDS ORDERED: PHENYLEPHRINE 100MCG/ML 10ML SYR IV ONE (10:41)
[2024-01-21] MEDS: ORTHO JOINT ANESTHETIC ONE (10:48)
[2024-01-21] MEDS ORDERED: PROPOFOL IV EMULSION 10 MG/ML 20 ML VIAL IV ONE (10:59)
[2024-01-21] MEDS: TRANEXAMIC ACID 1,000 MG **IV Intra-op IV SCH (11:10)
[2024-01-21] MEDS: ROPIV 0.5% 246mg, Ketorolac 30mg, EPINEPHrine 0.5mg in NSS INFIL SCH (11:16)
--- NOTE | 2024-01-21 11:23 | Operative Report ---
PG Post Operative Report Pre & Post Diagnosis Operation Date: 01/21/24 10:00 Pre-Op Diagnosis: Osteoarthritis of right knee Post-Op Diagnosis: Osteoarthritis of right knee I identified the patient and participated in the time-out.: Yes Procedure Operation Date: 01/21/24 10:00 Actual Procedures p Right Total Knee Arthroplasty(Right) - Rome Farfan DO Surgeon Rome Farfan DO Roll Carrier Yovani Young PA-C Estimated Blood Loss 30 Findings Consistent with Post-Op Diagnosis Specimens Right femoral tibial bone Description of Procedure Implants used: I used a Dana Persona total knee arthroplasty system with a size 9 standard femur, E tibia, 31 oval patella, and a size 11 medial congruent 5 polyethylene bearing. All components were cemented in place with Biomet cement. Bret tucker [facility] for the above procedure. He was seen in the preoperative holding area and the operative extremity was identified and signed. He was given a preoperative antibiotic, TXA, a spinal anesthetic and an adductor nerve block. He was taken back to the operating room and laid on the table in supine position. He was given basic sedation. The operative knee was then prepped and draped in sterile fashion. A timeout was done, and the patient and the operative extremity was properly identified. A midline incision was made directly over the patella. Dissection was taken down to the extensor mechanism. A midvastus arthrotomy was used. The medial retinaculum was released and the fat pad was mostly excised. The knee was flexed and the ACL, PCL, and meniscus were removed. A drill was sent down the center of the femoral canal followed by an intramedullary deyanira. Off that deyanira a distal femoral cutting block was placed. 9 mm was resected off the distal femur at 5 of valgus. A posterior referencing AP sizing guide was then placed on the distal femur. The femur measured to be a size 9. 2 drill holes were placed in 3 of external rotation. A 4-in-1 cutting block was then impacted into place. Anterior, posterior, and chamfer cuts were then made. The proximal tibia was then exposed. An external tibial alignment guide was placed. A tibial cut guide was then anchored in place and the proximal tibia was then resected. The posterior aspect of the knee was then opened up and any additional meniscus fragments and osteophytes were removed. The tibia measured to be a size E. The tibial plate was then placed in the appropriate rotation and the tibia was drilled and punched. Trial components were then placed. I used a size 11 medial congruent polyethylene insert. The knee was brought through a full range of motion and felt to be stable. The peg holes for the femoral component were then drilled. The patella was then everted and 9 mm was resected off the posterior aspect of the patella. The patella measured to be a size 31 oval. 3 peg holes were then drilled. A trial patella was placed. The knee was once again brought through a full range of motion and felt to be stable. Trial components were then removed. The surrounding soft tissues were injected with 100 cc of an orthopedic pain control cocktail. All components were then cemented into place with Biomet cement. The final polyethylene insert was then snapped into place. Once cement was dry the tourniquet was deflated. Hemostasis was obtained. A dilute betadyne lavage was then done for 3 minutes. The joint was then irrigated with normal saline solution. The midvastus arthrotomy was then closed with #1 Vicryl suture. The skin was closed with 2-0 Vicryl, 3-0V lock suture, and chance. A soft compressive dressing was placed. He was then transferred to a hospital bed and taken to the postanesthesia care unit in stable condition. He tolerated the procedure well. Yovani Young PA-C, was present for the entire procedure. He was critical for patient positioning, prepping, draping, retraction exposure, wound closure and application of sterile dressing. I attest to the content of the Intraoperative Record and any orders documented therein. Any exceptions are noted below.
--- NOTE | 2024-01-21 12:15 | XRay Report ---
XR knee RT 1 or 2V routine CLINICAL HISTORY: Postoperative evaluation. COMPARISON: Right knee radiographs May 28, 2023. MRI of the right knee October 27, 2023. FINDINGS: Alignment of the total right knee arthroplasty is anatomic. There is no periprosthetic fra cture or unexpected radiopaque foreign body. There are skin chance. IMPRESSION: Expected findings following total right knee arthroplasty. ACT 112: Negative or not required by law. Electronically signed by: William Palacios M.D. 01/21/2024 12:13 PM
[2024-01-21] MEDS ORDERED: METOCLOPRAMIDE HCL INJ 5 MG/ML 2 ML VIAL IV PRN (12:45)
[2024-01-21] MEDS ORDERED: MAGNESIUM HYDROXIDE SUSP 30 ML UDC PO PRN (12:45)
[2024-01-21] MEDS ORDERED: traMADol HCL 50 MG TABLET PO PRN (12:45)
[2024-01-21] MEDS ORDERED: NALOXONE HCL 0.4 MG/1 ML VIAL/CARP IV PRN (12:45)
[2024-01-21] MEDS ORDERED: bisacodyL 10 MG SUPP PR PRN (12:45)
[2024-01-21] MEDS ORDERED: HYDROmorphone INJ 0.5 MG/0.5 ML SYR IV PRN (12:45)
[2024-01-21] MEDS: SODIUM CHLORIDE 0.9% 1,000 ML IV SCH (13:09)
--- NOTE | 2024-01-21 13:12 | Anesthesiology Progress Note ---
Date of Service January 21, 2024 Anesthesia Post Procedure Vital Signs Vital Signs: Temp Pulse Pulse Resp BP Pulse Ox O2 Del Method 01/21/24 12:55 68 20 101/65 94 Room Air 01/21/24 12:25 69 15 105/68 94 Room Air 01/21/24 12:10 36.5 C 72 15 108/62 94 Room Air 01/21/24 12:00 76 18 107/60 95 Room Air 01/21/24 11:50 77 20 98/64 L 96 Room Air 01/21/24 11:42 36.0 C L 84 16 88/58 L 95 Oxymask 01/21/24 09:01 36.7 C 72 18 124/87 94 Room Air O2 Flow Rate 01/21/24 12:55 01/21/24 12:25 01/21/24 12:10 01/21/24 12:00 01/21/24 11:50 01/21/24 11:42 6 01/21/24 09:01 Transfer of Care Handoff Completed per policy Notes Mental Status: alert / awake / arousable and participated in evaluation Patient Amnestic to Procedure: Yes Nausea / Vomiting: adequately controlled Pain: adequately controlled Airway Patency, RR, SpO2: stable & adequate BP & HR: stable & adequate Hydration State: stable & adequate Anesthetic Complications: no major complications apparent and Pt Satisfied with anesthetic care
[2024-01-21] MEDS: KETOROLAC TROMETHAMINE 15 MG/ML VIAL IV SCH (14:04)
[2024-01-21] MEDS: ceFAZolin 1000MG 1,000 MG/7.5 ML SYR IV SCH (18:15)
[2024-01-21] MEDS: oxyCODONE HCL IR 5 MG TAB (IMMEDIATE RELEASE) PO PRN (19:39)
[2024-01-21] MEDS: ASPIRIN 81 MG ECTAB PO SCH (20:36)
[2024-01-21] MEDS: GABAPENTIN 100 MG CAP PO SCH (20:37)
[2024-01-21] MEDS: DIVALPROEX EXTENDED RELEASE 250 MG TABCR PO SCH (20:37)
[2024-01-21] MEDS: DIVALPROEX DELAY RELEASE 500 MG TAB PO SCH (20:37)
[2024-01-21] MEDS: ROSUVASTATIN CALCIUM 20 MG TAB PO SCH (20:38)
[2024-01-21] MEDS: SENNA 8.6 MG TAB PO SCH (20:38)
[2024-01-21] MEDS: PANTOprazole 40 MG TAB PO SCH (20:38)
[2024-01-21] MEDS: DOCUSATE SODIUM 100 MG CAP PO SCH (20:42)
[2024-01-22] MEDS: ALPRAZolam 0.5 MG TABLET PO PRN (03:31)
--- NOTE | 2024-01-22 07:47 | Surgery Progress Note ---
Date of Service January 22, 2024 Assessment & Plan (1) Status post right knee replacement: Plan: 63-year-old gentleman postop day 1 from a right knee replacement doing reasonably well. Some pain but nothing unexpected. It is manageable. He is getting around pretty well. He is open to go home. Plan: He is can go through therapy this morning. As long as he does okay we will discharge him home. He can have home health. Continue DVT prophylaxis. Follow-up in the clinic in 2 weeks. Admission and Anticipated Discharge Date Admission Date: January 21, 2024 Subjective 63-year-old gentleman postop day 1 from right knee replacement. He is doing reasonably well. Some pain but manageable. No chest pain or shortness of breath. Not feeling dizzy or lightheaded. He has been walking around his room even without the walker to some degree. Physical Exam Physical Exam: Physical examination is a pleasant middle-age male. Examination nation of the right leg reveals the dressing be clean dry and intact. He can dorsiflex and plantarflex his foot appropriately. He can lift his leg but has a little bit of extensor lag.'s Brisk refill. Neurologically intact. Respiratory: normal respiratory effort, lungs clear to auscultation Cardiovascular: RRR, no murmur, no edema Gastrointestinal (Abdomen): normal bowel sounds, soft, nontender, no hepatosplenomegaly Results & Data Vital Signs (Past 12 Hours) Vital Signs Temp Pulse Resp BP Pulse Ox O2 Del Method 01/22/24 03:33 36.6 C 74 16 141/69 H 94 Room Air 01/21/24 23:15 36.7 C 95 H 16 120/64 94 Room Air 01/21/24 23:10 36.7 C 95 H 16 120/64 94 Room Air PG Care Time/CCT Total # of Minutes Spent Total Time Spent with Patient: Total time spent is greater than 50% in coordination of care (as documented) at patient's floor/unit and/or counseling patient: Coding Level of Care Code None Diagnoses Status post right knee replacement Z96.651
[2024-01-22] MEDS: MULTIVITAMIN TAB PO SCH (08:12)
[2024-01-22] MEDS: dexAMETHasone 4 MG TAB PO SCH (08:13)
[2024-01-22] MEDS ORDERED: GABAPENTIN 100 MG CAP PO SCH (12:00)
--- NOTE | 2024-01-24 13:53 | Discharge Summary ---
Date of Service January 24, 2024 Admission HPI (Per Admitting) Philip is a pleasant 63-year-old male who has been doing with chronic increasing right knee pain. I did a right knee arthroscopy on him several months ago. It showed extensive osteoarthritis and a very large patellofemoral lesion. There were multiple loose bodies. Unfortunately he has not done well postoperatively. He continues to have pain. After failing extensive conservative treatment, he has elected to proceed with a right total knee ar throplasty.. Admission Exam (Per Admitting) On physical examination the right knee, he has no effusion. He is range of motion 0 to 120 degrees no gross instability but he has diffuse pain. Most of his pain is in the patellofemoral joint.. Principal Diagnosis Same as "Discharge Diagnosis" noted below under Discharge Instructions. Discharge Data Procedures Performed Operation Date: 01/21/24 10:00 Actual Procedures p Right Total Knee Arthroplasty(Right) - Rome Farfan DO Ordered Studies 01/21/24 05:00 US - OR guided needle placemen Routine Hospital Course (1) Status post right knee replacement: On January 21, 2024 Bret arrived at [facility] and underwent a right knee replacement without complication. He had a spinal anesthetic. Postoperatively he was started on aspirin for DVT prophylaxis and transferred to the general orthopedic floors. His hospital course was uneventful. On postop day #1, his vital signs were stable and his pain was well-controlled. He was able to participate well with physical therapy doing ambulation and range of motion exercises. He was then discharged home. He will follow-up with orthopedics in 2 weeks. PG Care Time/CCT Total # of Minutes Spent Total Time Spent with Patient: Total time spent is greater than 50% in coordination of care (as documented) at patient's floor/unit and/or counseling patient: Discharge Plan Discharge Items Patient Disposition: Home - Self-Care Reason For Visit: Right Knee Degenerative Joint Disease Discharge Diagnosis: Right knee replacement Activity: Per Instructions section Non-emergency contact: Surgeon Call non-emergency contact if: your wound has increased redness and your wound has increased drainage Follow-up/Referrals: Rome Albarado DO [Primary Care Provider] - Rome Farfan DO [Physician] - 02/09/24 11:40 am Diet: Regular Addtl Attending Provider Instructions: Activity and Therapy Recommendations: * If you are using [facility] then therapy will be provided at your home until they feel you have accomplished all of your goals. * If you are using [facility] then Physical Therapy will be provided until they feel you are ready to start Outpatient Physical Therapy. * If you are not using home therapy then Outpatient Physical Therapy should start about 3-5 days from your day of surgery. Therapy will last about 6-10 weeks * It is important not to put a pillow under your knee when you are relaxing or sleeping. It is just as important to make sure you are getting your knee perfectly straight as it is to regain your knee bend. * You were shown a series of exercises in the hospital. Do these exercises three times each day including the exercises you were shown in physical therapy. * Get up and walk several times each day. For the first four weeks, try not to stand or walk for more than one hour at a time. If you do stand or walk for more than one hour, you will not hurt anything, but your leg will likely swell. * As you feel comfortable, you may change from the walker or crutches to a cane and then to independent walking. Medications: * Narcotic You will likely be sent home from the hospital with a prescription for the narcotic pain medication that worked best throughout your stay. * Cefadroxil -take the antibiotic twice a day for 10 days to help prevent infection. * Aspirin Most patients will be required to take Aspirin 81mg twice a day for 6 weeks after surgery. This is obtained [id number] and a prescription is not necessary. * Other medications may be prescribed for specific circumstances. If you have any questions, please call the office at . * Resume previous home medications unless otherwise instructed TEDs/Elastic Stockings: The white elastic stockings help limit swelling and prevent blood clots from forming in your legs.~ The more you wear them, the more they work. Wear them f or six weeks. Dressing Care: The dressing can be changed after physical therapy on postop day #1. Daily dry dressing changes for a few days, especially if the incision is still draining some. If the incision is not draining then you may leave the chance open to air. If there is a little bit of drainage or if the chance are getting stuck on your clothing then cover the incision with a dry dressing. The chance will be removed at your 2 week follow-up appointment. Showering: You may shower 5 days from the day of surgery as long as the incision is no longer draining. You may shower with the chance exposed. Let soapy water run over the chance and pat them dry. Do not scrub or soak the incision. Things To Watch For: * Drainage from the incision site that occurs more than one week after your surgery. * Increased redness at the incision site. * Fever above 102 degrees Fahrenheit. * Unusual chest pain or shortness of breath. * Call [facility] at with any of the above problems Follow-Up Visit: Follow-up with Dr. Farfan's PA (Rome Mendez) 2-3 weeks after your day of surgery. He will remove your chance and answer any questions. If you have any additional questions or concerns, Dr Farfan is usually in the office at the same time and will be available An appointment was probably scheduled when you signed-up for surgery in the office. If you have any questions call Office Instructions: More detailed instructions as well as Frequently Asked Questions were provided in a folder by our office when you signed-up for surgery. Please review these instructions when you get home. If you have any further questions or concerns, please feel free to call the office at [phone] Pending Studies at Discharge: No Stand-Alone Forms: My [facility] Medications and DC Order Prescriptions: New oxycodone 5 mg Tablet 5 mg PO Q4H PRN (Reason: pain) Qty: 30 0RF cefadroxil 500 mg capsule 500 mg PO BID 10 Days Qty: 20 0RF aspirin 81 mg Tablet,Delayed Release (Dr/Ec) 81 mg PO BID 42 Days Qty: 84 0RF Continued rosuvastatin [Crestor] 20 mg tablet 20 mg PO HS Qty: 90 3RF [id number]-hjiqfrsrnfwvf-[id number] [Esgic] 50-325-40 mg tablet 1 tab PO UD PRN (Reason: Migraine Headache) Qty: 30 0RF divalproex [Depakote ER] 250 mg tablet extended release 24 hr 250 mg PO HS Qty: 90 3RF Rx Instructions: Take with 500mg tablet HS (750mg total). albuterol 90 mcg/actuation aerosol 90 mcg inhalation UD PRN (Reason: sob) diphenhydramine HCl [Allergy Relief(diphenhydramin)] 25 mg tablet 25 mg PO TID PRN (Reason: Allergy Symptoms) divalproex [Depakote] 500 mg tablet,delayed release (DR/EC) 500 mg PO HS pantoprazole [Protonix] 40 mg tablet,delayed release (DR/EC) 40 mg PO HS Patient Comments: HS alprazolam [Xanax] 0.5 mg tablet 0.5 mg PO DAILY PRN (Reason: Anxiety, sleep) gabapentin 100 mg capsule 100 mg PO TID Rx Instructions: AM - 200mg, NOON - 100mg (per pt he does not always take this dose), PM - 200mg fluticasone propionate [Flonase Allergy Relief] 50 mcg/actuation spray,suspension 1 - 2 spray Intranasal QAM PRN (Reason: Allergy Symptoms) Discharge Orders: Discharge Order (Routine); Ordered 01/22/24 Ordered By: Mario Alberto Maher/Other Patient Handouts: Cefadroxil Oral Tablet Admission Data Admit Date/Time: 01/21/24 11:50 Attending Provider: Rome Farfan Admit Provider: Rome Farfan Primary Care Provider: Rome Albarado Other Interventions: Discharge Summary Assessment (RN) Last Done: 01/22/24 10:16
== END 2024-01-22 10:52 | disposition home or self-care (01) ==
LOC: PACUINP 08:33 → ASU 08:33 → 3N 13:48